=== PATIENT | male | born 1970 | race Caucasian/White ===

== ENCOUNTER 2018-11-10 15:49 | Inpatient (IN) | payer OTHER ==
[~2018-11-10] VITALS: Ht 167.6 cm; Wt 71.7 kg
--- NOTE | 2018-11-10 15:57 | NUR ---
PACIENTE REFERIDO DE LA OFICINA DEL DR. FARTUN MACHADO CON CT SONOGRAMA Y LABORATORIOS POR ACUTE APENDICITIS. PTE REFIERE LEVE DOLOR ABDOMINAL.
[2018-11-12] MEDS ORDERED: PERCOCET 5-3251 EACH PO (12:03)
== END 2018-11-12 13:26 | disposition home or self-care (01) | DRG 343 ==
LOC: ER 15:49 → SURG 18:32 → SEC-K 18:32 → O/R 11-11 05:19 → SURG 11-11 11:10
PROVIDERS: ADMIT Surgery
PROC: 0DTJ4ZZ Resection of Appendix, Percutaneous Endoscopic Approach (ICD-10-PCS; principal; 2018-11-10 23:30)
DX: K35.30 Acute appendicitis with localized peritonitis, without perforation or gangrene (principal)